=== PATIENT | female | born 1970 | race Caucasian/White ===

== ENCOUNTER → 2022-05-16 | Outpatient (CLI) | payer BC | LOC: WWCWWP 07:02 | PROVIDERS: ATTEND Surgery | DX: Z53.9 Procedure and treatment not carried out, unspecified reason (principal) ==

== ENCOUNTER → 2022-05-16 | Day surgery (SDC) | payer BC ==
[2022-05-16 07:17] VITALS: RESP 16
--- NOTE | 2022-05-16 08:09 | P.GSHP ---
History of Present Illness H&P Date: 05/16/22 Chief Complaint: Microcalcifications of concern left breast Artie is a 51-year-old white female seen in consultation for Dr. Oleary regarding a routine screening mammogram on which revealed no lesions of concern in the right breast but with some developing calcifications in the middle third of the left breast in the 12 o'clock position. Additional views were performed on . This revealed multiple pleomorphic microcalcifications within the middle third of the left breast 11 to 12 o'clock position. These were new from prior examination. Biopsy was recommended. An ultrasound was also performed on the same date. Recommendation was for a stereotactic core biopsy of the left breast. The patient did not note any new lumps masses or nodules of concern in either breast. She is not complaining of any nipple discharge or skin changes. She has never had any surgery on her breast. She has not had any recent trauma or infection in the breast. Caffeine: B-12 with caffiene capsules, drinks coffee daily as well as Mountain Dew Nicotine: vaping started 1 year ago, used to smoke 1PPD for 30 years chocolate: rare hormones: none now used BCP for 20 years stopped 11 years ago Family history: maternal grandfather: prostate and bone cancer Hormonal History: menarche: 13 , breast fed: yes, age at first : 16 menopause: LMP 8 months ago Surgical history: tubaligation cyst between trachea and esophagus, removed Medical History: GERD Social History: vape: 1 tube /4 days alcohol: occasional (weekly) drugs: none - Constitutional Constitutional: Reports sweats - EENT Eyes: denies blurred vision, denies pain Ears: deny: decreased hearing, tinnitus Ears, nose, mouth and throat: Denies headache, Denies sore throat - Breasts Breasts: bilateral: as per HPI - Cardiovascular Cardiovascular: Denies chest pain, Denies shortness of breath - Respiratory Comment: smoker former, vapes - Gastrointestinal Gastrointestinal: Denies abdominal pain, Denies diarrhea, Denies nausea, Denies vomiting - Genitourinary (Female) Genitourinary: Denies dysuria, Denies hematuria - Menstruation Comment: chadwick-menopausal - Musculoskeletal Musculoskeletal: Denies myalgias - Integumentary Integumentary: Denies pruritus, Denies rash - Neurological Neurological: Denies numbness, Denies weakness - Psychiatric Psychiatric: Denies anxiety, Denies depression - Endocrine Endocrine: Denies fatigue, Denies weight change - Hematologic/Lymphatic Comment: none - Allergic/Immunologic Allergic/Immunologic: Reports as per HPI Past Medical History Past Medical History: No Reported History History of Any Multi-Drug Resistant Organisms: None Reported Past Surgical History: Tubal Ligation Additional Past Surgical History / Comment(s): cyst in neck removed February 2013 Past Anesthesia/Blood Transfusion Reactions: No Reported Reaction Past Psychological History: Bipolar Additional Psychological History / Comment(s): no meds Smoking Status: Vaper Past Alcohol Use History: Occasional Past Drug Use History: None Reported Medications and Allergies Home Medications Medication Instructions Recorded Confirmed Type Cetirizine HCl [Zyrtec] 10 mg PO DAILY 05/09/22 05/16/22 History Omeprazole 20 mg PO DAILY 05/09/22 05/16/22 History Allergies Allergy/AdvReac Type Severity Reaction Status Date / Time bee venom protein (honey bee) Allergy Swelling Verified 05/16/22 07:45 Cephalosporins Allergy Rash/Hives Verified 05/16/22 07:45 nickel Allergy Itching Verified 05/16/22 07:45 Penicillins Allergy Rash/Hives Verified 05/16/22 07:45 tetanus and diphtheria Allergy Swelling Verified 05/16/22 07:45 toxoids Surgical - Exam Vital Signs Temp Pulse Resp BP 98.2 F 83 16 145/92 05/16/22 07:12 05/16/22 07:12 05/16/22 07:12 05/16/22 07:12 BMI: 25.3 - General well developed, well nourished, no distress - Eyes normal ocular movement - Neck trachea midline - Respiratory normal respiratory effort, clear to auscultation - Cardiovascular Rhythm: regular Heart Sounds: normal: S1, S2 - Abdomen Abdomen: soft, non tender, no guarding, no rigid, no rebound - Integumentary normal turgor - Neurologic no disoriented, no combative - Musculoskeletal normal gait - Psychiatric oriented to time, oriented to person, oriented to place, speech is normal, memory intact Breast Exam: BRA: 38C inspection: Bilateral grade 2 ptosis Palpation: Right breast: Multi-positional exam fibrocystic changes no dominant masses or nodules of concern dense breast Right axilla: No adenopathy of concern Left breast: Multi-positional exam fibrocystic changes, no dominant masses or notches of concern, dense breast Left axilla: No adenopathy of concern Results Mammogram reviewed with Dr. Caballero Assessment and Plan Assessment: Impression: 1. Fibrocystic breast changes 2. Mammographic abnormality/microcalcifications 12 o'clock position left breast Plan: Stereotactic core biopsy left breast Risks and benefits of the procedure discussed with the patient. Risks include but are not limited to bleeding, infection, reaction to the anesthetic. If the biopsy is discordant and further tissue acquisition may be necessary. Alternatives such as watchful waiting or resection in the operating room and discussed but not recommended. CC: Dr. Oleary
[2022-05-16 08:55] VITALS: BP 150/89; PULSE 73; TEMP 98.3
--- NOTE | 2022-05-16 09:05 | P.PCN ---
Date of Procedure: 05/16/22 Preoperative Diagnosis: Microcalcifications of concern middle third of the left breast at 12:00 Postoperative Diagnosis: Same Procedure(s) Performed: Stereotactic core biopsy left breast Anesthesia: local Surgeon: Minna Bustillo Pathology: other (Breast tissue, radiographic specimen reveals microcalcifications of concern) Condition: stable Disposition: same day Indications for Procedure: Microcalcifications of concern left breast Operative Findings: Breast tissue/radiograph reveals microcalcifications of concern Description of Procedure: The patient is a 51-year-old white female who underwent a screening mammogram revealing pleomorphic microcalcifications of concern the 12 o'clock position of the left breast in the middle third. She was recommended to undergo stereotactic core biopsy. Risk and benefits of the procedure were discussed with the patient. Risks include but are not limited to bleeding, infection, reaction to the anesthetic. Alternatives such as watchful waiting the resection the operating room were also discussed but not recommended. The patient understood and wished to proceed. The patient was taken to the stereotactic core biopsy room. She was positioned prone on the low rad table. Geographic Information System Surveyor film was obtained. A CC from above approach was utilized. The area of concern was identified. The lesion was targeted. The breast was prepped using Betadine. 20 mL of 1% lidocaine were used to anesthetize the area of concern. A 9-gauge vacuum-assisted core rotating biopsy needle was driven to the correct coordinates. A prefire film was obtained. The needle was noted to be in the correct location. The needle was fired a post- fire film was obtained. The needle was noted to be in the correct location. 13 core biopsy specimens were obtained. The biopsy cavity was lavaged. Radiograph of the specimen revealed that the calcifications of concern had been sampled. A secure marked top pack clip was placed. Radiograph on the table revealed the clip to be in the correct location. A 2-D mammogram will be done to confirm this location. The patient tolerated the procedure in stable condition. The specimen was sent to pathology. The patient will follow-up with Dr. Sung.
== END ==
LOC: RADMAMWWP 07:04
PROVIDERS: ATTEND Surgery
DX: D05.92 Unspecified type of carcinoma in situ of left breast (principal); F17.290 Nicotine dependence, other tobacco product, uncomplicated; K21.9 Gastro-esophageal reflux disease without esophagitis; F31.9 Bipolar disorder, unspecified; Z98.51 Tubal ligation status; Z79.899 Other long term (current) drug therapy; Z88.1 Allergy status to other antibiotic agents; Z91.030 Bee allergy status; Z88.0 Allergy status to penicillin; Z91.048 Other nonmedicinal substance allergy status; Z88.7 Allergy status to serum and vaccine; Z98.890 Other specified postprocedural states; Z80.42 Family history of malignant neoplasm of prostate; Z80.8 Family history of malignant neoplasm of other organs or systems
CPT/HCPCS: 88305; 88342; 88341; 19081; A4648; J2001

== ENCOUNTER → 2022-07-11 | Outpatient (CLI) | payer BC ==
--- NOTE | 2022-07-01 14:07 | P.PN ---
Progress Note - Text Progress Note Date: 07/01/22 [The patient's case was presented at tumor board. It is recommended the patient have a needle localization lumpectomy and sentinel node biopsy. The patient is going to have genetic testing performed. The patient states that the genetic testing results would not alter decision to proceed with a needle local lumpectomy and sentinel node biopsy. She is not interested in a more aggressive surgery no matter what the results of the genetic testing. 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 The sentinel biopsy secondary to the fact that this is high grade and the size of the lesion.
[2022-07-11 09:10] VITALS: BP 147/87; PULSE 76; RESP 12; TEMP 98.2
--- NOTE | 2022-07-11 09:37 | P.PN ---
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 Oleary regarding a routine screening mammogram on which revealed no lesions of concern in the right breast but with some developing calcifications in the middle third of the left breast in the 12 o'clock position. Additional views were performed on . This revealed multiple pleomorphic microcalcifications within the middle third of the left breast 11 to 12 o'clock position. These were new from prior examination. Biopsy was recommended. An ultrasound was also performed on the same date. Recommendation was for a stereotactic core biopsy of the left breast. The patient did not note any new lumps masses or nodules of concern in either breast. She was not complaining of any nipple discharge or skin changes. She had never had any surgery on her breast. She had not had any recent trauma or infection in the breast. She underwent a stero biopsy of the left breast on 05-16-22. Pathology revealed DCIS high grade ER-, Pr low+; reviewed with Dr. Rojas about 1.5 cm - 2 cm in size. She tolerated that biopsy with no difficulty. Her case was presented at tumor board on 07-01-22; agreement for a lumpectomy with a SNB secondary to high grade and size of DCIS. Note: 06-06-22 radiation oncology reviewed. Caffeine: B-12 with caffiene capsules, drinks coffee daily as well as Mountain Dew Nicotine: vaping started 1 year ago, used to smoke 1PPD for 30 years chocolate: rare hormones: none now used BCP for 20 years stopped 11 years ago Family history: maternal grandfather: prostate and bone cancer Hormonal History: menarche: 13 , breast fed: yes, age at first : 16 menopause: LMP 8 months ago Surgical history: tubaligation cyst between trachea and esophagus, removed Medical History: GERD Social History: vape: 1 tube /4 days alcohol: occasional (weekly) drugs: none - Constitutional Constitutional: Reports sweats - EENT Eyes: denies blurred vision, denies pain Ears: deny: decreased hearing, tinnitus Ears, nose, mouth and throat: Denies headache, Denies sore throat - Breasts Breasts: bilateral: as per HPI - Cardiovascular Cardiovascular: Denies chest pain, Denies shortness of breath - Respiratory Comment: smoker former, vapes - Gastrointestinal Gastrointestinal: Denies abdominal pain, Denies diarrhea, Denies nausea, Denies vomiting - Genitourinary (Female) Genitourinary: Denies dysuria, Denies hematuria - Menstruation Comment: chadwick-menopausal - Musculoskeletal Musculoskeletal: Denies myalgias - Integumentary Integumentary: Denies pruritus, Denies rash - Neurological Neurological: Denies numbness, Denies weakness - Psychiatric Psychiatric: Denies anxiety, Denies depression - Endocrine Endocrine: Denies fatigue, Denies weight change - Hematologic/Lymphatic Comment: none - Allergic/Immunologic Allergic/Immunologic: Reports as per HPI Objective - Vital Signs Vital signs: Vital Signs Temp 98.2 F 07/11/22 09:05 Pulse 76 07/11/22 09:05 Resp 12 07/11/22 09:05 BP 147/87 07/11/22 09:05 Pulse Ox FiO2 Intake & Output 07/10/22 07/11/22 07/11/22 18:59 06:59 18:59 Weight 67.132 kg - Exam BMI: 23.9 - Constitutional General appearance: Present: cooperative - EENT Eyes: Present: EOMI ENT: Present: hearing grossly normal - Neck Neck: Present: normal ROM - Respiratory Respiratory: bilateral: CTA - Cardiovascular Rhythm: regular Heart sounds: normal: S1, S2 - Gastrointestinal General gastrointestinal: Present: soft - Integumentary Integumentary: Present: normal turgor - Musculoskeletal Musculoskeletal: Present: gait normal - Psychiatric Psychiatric: Present: A&O x's 3, appropriate affect, intact judgment & insight - Additional findings Additional findings: Breast Exam: BRA: 38C Inspection: bilateral grade 2 ptosis palpation: right breast: multipositional exam no domoniate masses or nodules of concern right axilla: no adenopathy of concern left breast: Multiple position or exam biopsy site clean and dry Evidence of infection small hematoma in the breast parenchyma at the site of the biopsy Left axilla: No adenopathy of concern Margin probe was used to delineate the place for the incision would be made with the mastopexy incision and how an optical plastic tissue transfer would be performed. Assessment and Plan Assessment: Impression: left breast DCIS Plan: left breast needle localization lumpectomy via a mastopexy approach, left sentinal node injection, left sentinal node biopsy, possible left axillary node disection, possible onco-plastic tissue transfer Approximately 45 minutes were spent with the patient and her daughter on a prior appointment reguarding treatment options. With the breast the option of lumpectomy versus mastectomy was discussed as well as the risks and benefits of each. Radiation oncology and hormone therapy via medical oncology were discussed as well. For the surgical options the patient would prefer a lumpectomy. Risk of lumpectomy include but are not limited to bleeding, infection, reaction to the anesthetic. If the margins were to be positive further resection may be needed. The patient would like to have this done via mastopexy incision with p ossible onco-plastic tissue transfer. We discussed sentinel node biopsy. Although this is a DCIS that is high-grade and more extensive than the area sampled from the biopsy. Therefore the patient would prefer sentinel lobe biopsy be performed. Risks of this include but are not limited to bleeding, infection, reaction to the anesthetic, lymphedema, decreased sensation to the interim, possibility of injury to the thoracodorsal or long thoracic nerves. If methylene blue was necessary to be injected the patient may have some skin necrosis. CC: Meghan Angelo
== END ==
LOC: WWCWWP 08:56
PROVIDERS: ATTEND Surgery
DX: D05.12 Intraductal carcinoma in situ of left breast (principal); Z88.7 Allergy status to serum and vaccine; Z88.1 Allergy status to other antibiotic agents; Z91.030 Bee allergy status; Z88.0 Allergy status to penicillin; Z88.9 Allergy status to unspecified drugs, medicaments and biological substances

== ENCOUNTER 2022-07-15 09:14 | Day surgery (SDC) | payer BC ==
[2022-07-11 10:31] VITALS: BMI 23.8
[~2022-07-15 09:14] MED LIST: ALPRAZolam 0.5 MG TAB PO PRN; DEXAMETHASONE SOD PHOSPHATE 4 MG/ML 1 ML VIAL IV ONE; HEPARIN SODIUM,PORCINE/PF 5,000 UNIT/0.5 ML SYRINGE SQ PRN; LACTATED RINGERS 1,000 ML IV SCH; ONDANSETRON 4 MG/2 ML VIAL IVP ONE; Pre Op ABX Message 1 EACH MISC MISCELLANE ONE; fentaNYL (PF) 50 MCG/ML 2 ML AMP IV PRN
[2022-07-15] MEDS ORDERED: LIDOCAINE 1% INJ 10MG/ML (20 ML MDV) SQ ONE (10:49)
--- NOTE | 2022-07-15 11:05 | P.NAPBC ---
NAPBC Queries - NAPBC Queries Was patient's case review presented at [facility] tumor board? If no, comment.: Yes Was patient's pathology reviewed at [facility]? If no, comment.: Yes Was breast conservation surgery offered? If no, comment.: Yes Was sentinel node biopsy offered? If no, comment.: Yes Was diagnosis confirmed by percutaneous core biopsy? If no, comment.: Yes Is patient mastectomy patient?: No Was a preop referral to reconstructive surgeon offered?: No Clinical Stage: stage 0 left breast DCIS
--- NOTE | 2022-07-15 12:49 | NM ---
EXAMINATION TYPE: NM sentinel node injection DATE OF EXAM: 07/15/2022 COMPARISON: NONE HISTORY: D05.12 INTRADUCTAL CARCINOMA IN SITU TECHNIQUE AND FINDINGS: The procedure of sentinel lymph node injection was explained to the patient. The benefits, alternatives, and risks were discussed. An informed consent was then obtained. Overlying skin is cleaned with sterile alcohol. Following this, 517 uCi Tc99m Tilmanocept was inject ed in the upper outer aspect of the left nipple intradermally. The patient tolerated the procedure well without any immediate complication. The patient was kept in the radiology department for short stay after the procedure and then taken to surgery for surgical p rocedure what is presumed intraoperative gamma probe will be used for sentinel lymph node detection. IMPRESSION: Left breast radiotracer injection for sentinel node localization as above.
[2022-07-15] MEDS ORDERED: fentaNYL (PF) 50 MCG/ML 2 ML AMP ONE (13:55)
[2022-07-15] MEDS ORDERED: LIDOCAINE 2% INJ 20 MG/ML (2 ML VIAL) ONE (13:55)
[2022-07-15] MEDS ORDERED: MIDAZOLAM 2 MG/2 ML VIAL ONE (13:55)
[2022-07-15] MEDS ORDERED: PROPOFOL 10 MG/ML 20 ML VIAL IV ONE (13:55)
[2022-07-15] MEDS ORDERED: LACTATED RINGERS 1,000 ML IV ONE (15:49)
--- NOTE | 2022-07-15 15:55 | P.OP ---
Date of Procedure: 07/15/22 Preoperative Diagnosis: DCIS left breast Postoperative Diagnosis: Same Procedure(s) Performed: Left breast needle localization lumpectomy, onco-plastic tissue transfer 47 cm, sentinel node biopsy, mastopexy Anesthesia: PAOLA Surgeon: Minna Bustillo Estimated Blood Loss (ml): 10 IV fluids (ml): 400 Pathology: other (Breast tissue, sentinel lymph node) Condition: stable Disposition: same day Indications for Procedure: Ductal carcinoma in situ left breast Operative Findings: Dense breast tissue Description of Procedure: The patient is a 51-year-old white female diagnosed with a left breast ductal carcinoma in situ. Biopsy. She was reassured radiology department where needle localization of the area of concern was performed. Additionally radioactive tracer was injected in the periareolar region. The patient is in the preoperative area and markings were placed for a mastopexy incision. The patient was brought to the operative suite and following induction of anesthesia utilizing neoprobe was noted to be radioactivity in the axilla. The left breast and axilla were prepped and draped in a sterile fashion. The area of the axilla was approached initially. Using the neoprobe the area of greatest radioactivity was identified. An incision was made and carried down to the radioactive lymph node. This was grasped using an Allis clamp. The surrounding tissue was excised. The 10 second count on the lymph node was 2997. The background count was 14. After assured that hemostasis was attained the wound was well irrigated. The deep tissues were closed using 3-0 Vicryl suture. The subcutaneous tissue was closed using 3-0 Vicryl suture. The skin was closed using 4-0 Monocryl. Following this the area of the breast was approached. The scope. Periareolar tissue was de- epithelialized as it had been marked in the preoperative area. The breast parenchyma was injected in the superior aspect of the crescent incision. Dissection was performed in the plane between the subcutaneous tissue and the breast tissue to the localizing needle. This was grasped using an Allis clamp after was brought to the skin. The surrounding tissue was excised. The area of excision of the cavity was 5 cm x 3 cm. Dissection was performed down onto the pectoralis major muscle. After assured that hemostasis was attained in medial patellar was performed which was 4 cm x 3 cm. A lateral patellar was formed which was 4 cm x 5 cm. The specimen was painted for orientation. Radiograph revealed that the area of concern about removed. Titanium clips were placed in the cavity. Surgicel and pelvis from was placed in the cavity. The medial and lateral pillars were brought together using 3-0 Vicryl suture. Total tissue transfer was 47 cm. Following this the subcutaneous tissue was closed using 3- 0 Vicryl suture. The mastopexy incision was closed using interrupted 3-0 Vicryl sutures followed by a 3-0 Vicryl running suture. This is followed by a 4-0 Monocryl running suture. A final nylon skin suture was placed. The patient tolerated the procedure in stable condition. All instrument and sponge counts were correct at the end of the case.
--- NOTE | 2022-07-15 15:57 | MM ---
Electronically signed and approved by: Pratik Marcano M.D. Radiologis
--- NOTE | 2022-07-15 15:58 | P.DS ---
Providers Attending physician: Minna Bustillo Primary care physician: Roe Oleary Plan - Discharge Summary Discharge Rx Participant: No New Discharge Prescriptions: No Action Omeprazole 20 mg PO QAM Cholecalciferol [Vitamin D3 (25 Mcg = 1000 Iu)] 25 mcg PO DAILY Zinc Gluconate [Zinc] 100 mg PO DAILY Cetirizine HCl [Zyrtec] 10 mg PO QAM Ascorbic Acid [Vitamin C] 250 mg PO DAILY Discharge Medication List Cetirizine HCl [Zyrtec] 10 mg PO QAM 05/09/22 [History] Omeprazole 20 mg PO QAM 05/09/22 [History] Cholecalciferol [Vitamin D3 (25 Mcg = 1000 Iu)] 25 mcg PO DAILY 06/06/22 [History] Ascorbic Acid [Vitamin C] 250 mg PO DAILY 07/11/22 [History] Zinc Gluconate [Zinc] 100 mg PO DAILY 07/11/22 [History] Follow up Appointment(s)/Referral(s): Minna Bustillo MD [STAFF PHYSICIAN] - 07/31/22 9:20 am Activity/Diet/Wound Care/Special Instructions: Second appointment with Dr. Pineda Martinez is 08/17/22 at 9:20 am. Wear bra at all times May shower after [address] if taking narcotic pain medication Do not drive for 24 hours from discharge from the hospital Discharge Disposition: HOME SELF-CARE
[2022-07-15 16:25] VITALS: TEMP 97.4
[2022-07-15] MEDS ORDERED: HYDROmorphone 0.5 MG/0.5 ML SYRINGE IVP ONE (16:45)
[2022-07-15 17:07] VITALS: RESP 20
[2022-07-15] MEDS ORDERED: HYDROcodone/APAP 5-325MG 1 EACH TAB ONE (17:13)
[2022-07-15] MEDS ORDERED: HYDROcodone/APAP 5-325MG 1 EACH TAB PO ONE (17:16)
[2022-07-15 17:41] VITALS: BP 164/92; PULSE 70
== END 2022-07-15 17:52 | disposition home or self-care (01) ==
LOC: OR 09:14
PROVIDERS: ATTEND Surgery
DX: D05.12 Intraductal carcinoma in situ of left breast (principal); K21.9 Gastro-esophageal reflux disease without esophagitis; F17.200 Nicotine dependence, unspecified, uncomplicated; Z80.42 Family history of malignant neoplasm of prostate; Z82.69 Family history of other diseases of the musculoskeletal system and connective tissue; Z88.0 Allergy status to penicillin; Z98.51 Tubal ligation status
CPT/HCPCS: 81025; 76098; 19281; 38792; 38505; C1819; A9520; J2250; J1100; J2405; J2001 ×2; J3010; J2704; J1170; J1644; 88305; 88307; 88341; 88342

== ENCOUNTER → 2022-07-18 | Outpatient (CLI) | payer BC ==
[2022-07-18 09:36] VITALS: BP 161/90; PULSE 60; RESP 17; TEMP 97.9
--- NOTE | 2022-07-18 09:43 | P.PN ---
Subjective Progress Note Date: 07/18/22 Principal diagnosis: DCIS Artie is status post left breast lumpectomy and SNB on 07-15-22. The patient has no complaints related to the procedure. The pathology is pending. Examination: Lungs: Clear Heart: Regular rate and rhythm Incision: Clean and dry Patient will follow-up in a week and a half CC: Dr. Oleary Objective - Vital Signs Vital signs: Vital Signs Temp 97.9 F 07/18/22 09:34 Pulse 60 07/18/22 09:34 Resp 17 07/18/22 09:34 BP 161/90 07/18/22 09:34 Pulse Ox 96 07/18/22 09:34 FiO2 Intake & Output 07/17/22 07/18/22 07/18/22 18:59 06:59 18:59 Weight 70.307 kg
== END ==
LOC: WWCWWP 09:20
PROVIDERS: ATTEND Surgery
DX: D05.12 Intraductal carcinoma in situ of left breast (principal); Z88.0 Allergy status to penicillin; Z91.030 Bee allergy status; Z88.1 Allergy status to other antibiotic agents; Z91.048 Other nonmedicinal substance allergy status; Z88.7 Allergy status to serum and vaccine

== ENCOUNTER → 2022-07-28 | Outpatient (CLI) | payer BC ==
--- NOTE | 2022-07-28 12:23 | P.PN ---
Progress Note - Text Progress Note Date: 07/28/22 DCIS Artie is status post left breast lumpectomy and SNB on 07-15-22. The patient has no complaints related to the procedure. The pathology revealed DCIS all margins (-) but close to posterior and medial margin. Four lymph nodes removed all negative. Posteriorly dissection was onto the pect muscle. Examination: Lungs: Clear Heart: Regular rate and rhythm Incision: Clean and dry; axillary incision has some seroma formation and the patient states this is tender was no evidence of infection Plan: represent at tumor board Aspiration axillary seroma Removal of sutures CC: Dr. Oleary
[2022-07-28 12:25] VITALS: BP 152/98; PULSE 71; RESP 16; TEMP 98.4
== END ==
LOC: WWCWWP 11:54
PROVIDERS: ATTEND Surgery
DX: S20.02XA Contusion of left breast, initial encounter (principal); J45.20 Mild intermittent asthma, uncomplicated; E78.5 Hyperlipidemia, unspecified; Z88.2 Allergy status to sulfonamides; Z91.048 Other nonmedicinal substance allergy status; Z88.8 Allergy status to other drugs, medicaments and biological substances; Z88.7 Allergy status to serum and vaccine; Z91.030 Bee allergy status

== ENCOUNTER → 2022-08-08 | Outpatient (CLI) | payer BC ==
[2022-08-08 13:29] VITALS: BP 154/94; PULSE 84; RESP 16; TEMP 98.3
--- NOTE | 2022-08-08 14:29 | P.PN ---
Progress Note - Text Progress Note Date: 08/08/22 DCIS Artie is status post left breast lumpectomy and SNB on 07-15-22. The patient has no complaints related to the procedure. The pathology revealed DCIS all margins (-) but close to posterior and medial margin. Four lymph nodes removed all negative. Posteriorly dissection was onto the pect muscle. Her case was presented at tumor board and no further resection recommended. Examination: Lungs: Clear Heart: Regular rate and rhythm Incision: Clean and dry; axillary incision clean and dry at this time Plan: Follow up with radiation oncology Appointment medical oncology Appointment physical therapy follow up here in 4 months CC: Dr. Oleary
== END | disposition home or self-care (01) ==
LOC: WWCWWP 12:51
PROVIDERS: ATTEND Surgery
DX: Z53.9 Procedure and treatment not carried out, unspecified reason (principal)

== ENCOUNTER → 2022-08-22 | Outpatient (CLI) | payer BC ==
[2022-08-22 13:11] VITALS: BP 157/87; PULSE 72; RESP 17; TEMP 98.9
--- NOTE | 2022-08-22 13:14 | P.PN ---
Progress Note - Text Progress Note Date: 08/22/22 DCIS Artie is status post left breast lumpectomy and SNB on 07-15-22. The patient has no complaints related to the procedure. The pathology revealed DCIS all margins (-) but close to posterior and medial margin. Four lymph nodes removed all negative. Posteriorly dissection was onto the pect muscle. Her case was presented at tumor board and no further resection recommended. Examination: Lungs: Clear Heart: Regular rate and rhythm Incision: Breast incision Clean and dry; axillary incision clean and dry at this time There may be a small seroma in the left breast at this time however there is nothing palpable for me to aspirate Plan: Follow up with radiation oncology; start treatment next week Appointment medical oncology; no hormone or chemotherapy has had an apointment with PT follow up here in 4 months CC: Dr. Oleary
== END | disposition home or self-care (01) ==
LOC: WWCWWP 12:34
PROVIDERS: ATTEND Surgery
DX: Z53.9 Procedure and treatment not carried out, unspecified reason (principal)

== ENCOUNTER → 2023-01-09 | Outpatient (CLI) | payer BC ==
--- NOTE | 2023-01-09 13:23 | USB ---
Reason for Exam: Clinical finding. Patient History: Menarche at age 13. First Full-Term at age 16. Postmenopausal. Breast cancer, left, age 51. 07/15/2022, Malignant MG pre op needle loc LT on the left side. 05/16/2022, Malignant MG stereo VAD BX LT on the left side. Technique: Method: Whole Breast Handheld. Prior Study Comparison: 03/20/2021 Bilateral MG screening mammo w [place] [id number], [facility]. 03/25/2022 Bilateral MG screening mammo w [place] [id number], [facility]. 04/08/2022 Left MG diagnostic mammo LT w [address] Findings: The whole breast of the left breast, the axilla of the left breast and the retroareolar of the left breast were scanned. Well-circumscribed cystic collection noted at the left 12:00 position measuring approximately 5.8 cm x 3.2 cm x 1.6 cm may reflect seroma. Overall Assessment: Benign, BI-RAD 2 Management: Diagnostic Mammogram of both breasts in 3 months. A clinical breast exam by your physician is recommended on an annual basis and results should be correlated with mammographic findings. This exam should not preclude additional follow-up of suspicious palpable abnormalities. Results were given to the patient verbally at the time of exam. Electronically signed and approved by: Pratik Marcano M.D. Radiologis
== END | disposition home or self-care (01) ==
LOC: RADUSWWP 12:12
PROVIDERS: ATTEND Surgery
DX: R92.8 Other abnormal and inconclusive findings on diagnostic imaging of breast (principal); Z85.3 Personal history of malignant neoplasm of breast; Z78.0 Asymptomatic menopausal state

== ENCOUNTER → 2023-01-09 | Outpatient (CLI) | payer BC ==
--- NOTE | 2023-01-09 12:09 | P.PN ---
Subjective Progress Note Date: 01/09/23 Principal diagnosis: DCIS left breast DCIS left breast Artie is a 51-year-old white female seen in consultation for Dr. Oleary regarding a routine screening mammogram on which revealed no lesions of concern in the right breast but with some developing calcifications in the middle third of the left breast in the 12 o'clock position. Additional views were performed on . This revealed multiple pleomorphic microcalcifications within the middle third of the left breast 11 to 12 o'clock position. These were new from prior examination. Biopsy was recommended. An ultrasound was also performed on the same date. Recommendation was for a stereotactic core biopsy of the left breast. The patient did not note any new lumps masses or nodules of concern in either breast. She was not complaining of any nipple discharge or skin changes. She had never had any surgery on her breast. She had not had any recent trauma or infection in the breast. She underwent a stero biopsy of the left breast on 05-16-22. Pathology revealed DCIS high grade ER-, Pr low+; reviewed with Dr. Rojas about 1.5 cm - 2 cm in size. She tolerated that biopsy with no difficulty. Her case was presented at tumor board on 07-01-22; agreement for a lumpectomy with a SNB secondary to high grade and size of DCIS. She underwent a left breast lumpectomy and sentinel node biopsy on . The lumpectomy revealed all margins negative for DCIS closest margin was less than 1 mm from the medial and posterior area. 4 lymph nodes removed all negative for tumor. The posterior dissection was onto the chest wall and the case was presented at tumor Board and no further resection was recommended. She was seen by radiation oncology as well as medical oncology. Note [id number] radiation oncology reviewed , completed treatment Sep.22. Note [id number] medical oncology reviewed. She will most likely not pursue hormone therapy as she was ER(-). She has developed a seroma about 1 month ago. The patient does continue to feel some fullness in her left breast in the upper outer quadrant area. She is not complaining of any lumps masses or nodules of concern in the right breast. Caffeine: B-12 with caffiene capsules, drinks coffee daily as well as Mountain Dew Nicotine: vaping started 1 year ago, used to smoke 1PPD for 30 years chocolate: rare hormones: none now used BCP for 20 years stopped 11 years ago Family history: maternal grandfather: prostate and bone cancer Hormonal History: menarche: 13 , breast fed: yes, age at first : 16 menopause: LMP 8 months ago Surgical history: tubaligation cyst between trachea and esophagus, removed Medical History: GERD Social History: vape: 1 tube /4 days alcohol: occasional (weekly) drugs: none - Constitutional Constitutional: Reports sweats - EENT Eyes: denies blurred vision, denies pain Ears: deny: decreased hearing, tinnitus Ears, nose, mouth and throat: Denies headache, Denies sore throat - Breasts Breasts: bilateral: as per HPI - Cardiovascular Cardiovascular: Denies chest pain, Denies shortness of breath - Respiratory Comment: smoker former, vapes - Gastrointestinal Gastrointestinal: Denies abdominal pain, Denies diarrhea, Denies nausea, Denies vomiting - Genitourinary (Female) Genitourinary: Denies dysuria, Denies hematuria - Menstruation Comment: chadwick-menopausal - Musculoskeletal Musculoskeletal: Denies myalgias - Integumentary Integumentary: Denies pruritus, Denies rash - Neurological Neurological: Denies numbness, Denies weakness - Psychiatric Psychiatric: Denies anxiety, Denies depression - Endocrine Endocrine: Denies fatigue, Denies weight change - Hematologic/Lymphatic Comment: none - Allergic/Immunologic Allergic/Immunologic: Reports as per HPI Objective - Constitutional General appearance: Present: cooperative - EENT Eyes: Present: EOMI ENT: Present: hearing grossly normal - Neck Neck: Present: normal ROM - Respiratory Respiratory: bilateral: CTA - Cardiovascular Rhythm: regular Heart sounds: normal: S1, S2 - Gastrointestinal General gastrointestinal: Present: soft - Integumentary Integumentary: Present: normal turgor - Musculoskeletal Musculoskeletal: Present: gait normal - Psychiatric Psychiatric: Present: A&O x's 3, appropriate affect, intact judgment & insight - Additional findings Additional findings: Breast exam: BRA: 36C Inspection: Postradiation and postsurgical changes left breast, left breast appears swollen compared to the right breast, right breast grade 2/3 ptosis, left breast grade 1/2 ptosis Palpation: Right breast: Multiple positional exam fibrocystic changes no dominant masses or nodules of concern Right axilla: No adenopathy of concern Left breast: Postsurgical and radiation changes some bogginess to the breast question of seroma present Left axilla: No adenopathy of concern Assessment and Plan Assessment: Impression: 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 An 18-gauge needle on a 20 mL syringe was inserted into the area of fullness. No fluid was obtained. An ultrasound will be obtained to ascertain if there is fluid which can be drained. CC: Dr. Oleary
[2023-01-09 12:16] VITALS: BP 169/103; PULSE 93; RESP 17; TEMP 97.9
== END ==
LOC: WWCWWP 11:45
PROVIDERS: ATTEND Surgery
DX: D05.12 Intraductal carcinoma in situ of left breast (principal); Z85.3 Personal history of malignant neoplasm of breast; N60.12 Diffuse cystic mastopathy of left breast; N64.89 Other specified disorders of breast; K21.9 Gastro-esophageal reflux disease without esophagitis; Z87.891 Personal history of nicotine dependence; Z92.3 Personal history of irradiation; Z88.0 Allergy status to penicillin; Z88.6 Allergy status to analgesic agent; Z91.030 Bee allergy status; Z88.1 Allergy status to other antibiotic agents; Z91.048 Other nonmedicinal substance allergy status; Z88.7 Allergy status to serum and vaccine

== ENCOUNTER → 2023-01-14 | Day surgery (SDC) | payer BC ==
--- NOTE | 2023-01-21 09:41 | MM ---
Reason for Exam: Post Procedure Mammogram. Last screening mammogram was performed 9 month(s) ago. Patient History: Menarche at age 13. First Full-Term at age 16. Postmenopausal. Breast cancer, left, age 51. 07/15/2022, Malignant MG pre op needle loc LT on the left side. 05/16/2022, Malignant MG stereo VAD BX LT on the left side. Prior Study Comparison: 03/20/2021 Bilateral MG screening mammo [place] [id number], [facility]. 03/25/2022 Bilateral MG screening mammo w [facility] - , [facility]. 04/08/2022 Left MG diagnostic mammo LT w [place] [id number], [facility]. Tissue Density: Left: The breast tissue is heterogeneously dense. This may lower the sensitivity of mammography. Pathology Description: Location: 12 o'clock, upper outer quadrant. The ultrasound guided cyst aspiration procedure was explained to the patient. The risks, benefits, alternatives were discussed. An informed consent was then obtained. A time out was performed. The patient was placed in supine positioning for imaging and for the procedure. The overlying skin was prepped with betadine and sterilely draped in usual sterile fashion. 4 ml 1% lidocaine was used as anesthetic into the skin and deeper breast tissue up to area of concern in the upper left breast. Lateral approach was utilized. Under ultrasound guidance, an 18-gauge needle was advanced into the cyst and aspiration yielded approximately 25 mL of straw-colored fluid. As on the current examination there appeared to be a small nodule present along the posterior wall, the fluid was labeled and sent for laboratory analysis. There appear to be complete collapse of the suspected seroma under real-time observation. A coil clip was left at the left lateral margin of the cystic structure. Good hemostasis was obtained with direct pressure. Postprocedure mammogram: The patient was transferred to mammography for physician ordered post procedure mammogram for clip placement verification. The clip is in the expected region of the biopsy. The patient tolerated the procedure well without any immediate complication. The patient was discharged to home in stable condition. Impression: Successful ultrasound guided cyst aspiration left breast. Cytology pending. Pathology Results: Result: Benign, Benign cyst. LEFT BREAST, 12:00, 4 CM FROM NIPPLE, FINE NEEDLE ASPIRATE: Degenerated cellular material and mixed inflammatory cells suggestive of degenerated cyst contents. No cytologically malignant cells identified. Overall Assessment: Benign Assessment: MG diagnostic mammo LT wo CAD. - Left: Benign, BI-RAD 2. Management: Diagnostic Mammogram of the left breast in 6 months. Electronically signed and approved by: Roe Caballero D.O. Radiologis
== END ==
LOC: RADUSWWP 10:20
PROVIDERS: ATTEND Surgery
DX: N64.89 Other specified disorders of breast (principal); Z85.3 Personal history of malignant neoplasm of breast
CPT/HCPCS: 88305; 88173; 77065; 76942; 19000; A4648